=== PATIENT | female | born 1965 | race Caucasian/White ===

== ENCOUNTER 2020-05-03 15:35 | Inpatient (IN) | payer SELFPAY ==
[~2020-05-03 15:35] MED LIST: Calcium Chloride 1 GM/10 ML Abboject SYRINGE ONE; Dexamethasone 20 MG/5 ML VIAL ONE; Lidocaine 1% PF 5 ML VIAL ONE; PROPOFOL 200 MG/20 ML VIAL ONE; Rocuronium Bromide 10 MG/ML (10ML VIAL) ONE
[2020-05-03] MEDS ORDERED: Piperacillin/Tazobactam 3.375 GM VIAL ONE (15:49)
[2020-05-03] MEDS ORDERED: Norepinephrine 4 MG/4 ML VIAL ONE (15:50)
[2020-05-03 16:03] LABS: Hemoglobin 7.5 g/dL (12.0-16.0); Mean Corpuscular HGB CONC 30.3 g/dL (32.0-36.0); Mean Corpuscular Hemoglobin 20.9 pg (27.0-31.0); Mean Corpuscular Volume 68.8 fL (78.0-98.0); Mean Platelet Volume 9.6 fL (7.4-10.4); Platelet Count 368 thou/uL (130-400); RBC Distribution Width 19.6 % (11.5-14.5); Red Blood Cell (RBC) Count 3.61 mill/uL (4.20-5.40); White Blood Cell (WBC) Count 6.6 thou/uL (4.8-10.8)
[2020-05-03] MEDS ORDERED: Midazolam HCl 2 mg/2 ml Vial ONE (16:16)
[2020-05-03 16:18] LABS: Base Excess-Venous -4.8 mmol/L (-2.0 to 3.0); Bicarbonate (HCO3v) 20.1 mmol/L (22.0-28.0); CO2 Tension (PvCO2) 35.4 mmHg (40.0-50.0); Calcium, Ionized 1.22 mmol/L (1.15-1.33); Chloride 100 mmol/L (98-107); Hemoglobin - Calc 8.5 g/dL (12.0-16.0); Potassium 4.4 mmol/L (3.5-5.1); Sodium 131 mmol/L (138-145); T. Carbon Dioxide 21.2 mmol/L (22.0-28.0); vO2 Saturation-calc 46.9 % (60.0-85.0)
[2020-05-03 16:21] LABS: ALT (SGPT) 10 U/L (8-55); AST (SGOT) 21 U/L (5-34); Albumin 2.9 g/dL (3.5-5.0); Alkaline Phosphatase 50 U/L (40-110); Anion Gap 16 mmol/L (10-20); BUN (Urea Nitrogen) 14 mg/dL (9.8-20.1); Bilirubin, Total 0.2 mg/dL (0.2-1.2); Calc. Creatinine Clearance 0 mL/min (70-130); Calcium 9.6 mg/dL (7.8-10.44); Carbon Dioxide 16 mmol/L (22-29); Chloride 101 mmol/L (98-107); Globulin 3.1 g/dL (2.4-3.5); Glucose 88 mg/dL (70-105); Potassium 4.3 mmol/L (3.5-5.1); Sodium 129 mmol/L (136-145)
[2020-05-03 16:25] LABS: Anisocytosis SLIGHT = 6-15 cells (100X) (0-5/hpf); Band 60 % (5-11); Hypochromia SLIGHT = 6-15 cells (100X) (0-5/hpf); Lymphocytes 10 % (21-51); MDiff Complete? YES; Microcytosis MODERATE=15-30 cells (100X) (0-5/hpf); Monocytes 11 % (0-10); Neutrophil 18 % (42-75); Platelet Morphology Comment Appears Adequate; Polychromasia SLIGHT = 2-3 cells (100X) (0-2/hpf); Reactive Lymphocytes 1 % (0-10); Reflex for Review?? NO; Target Cells MODERATE= 6-15 cells (100X) (0-1/hpf)
[2020-05-03] MEDS ORDERED: Sodium Chloride 0.9% 30 ML ONE (16:41)
[2020-05-03 16:52] LABS: INR-International Normal Ratio 1.1; Prothrombin Time 14.8 sec (12.0-14.7)
[2020-05-03 16:53] LABS: PTT 30.2 sec (22.9-36.1)
[2020-05-03] MEDS ORDERED: Phenylephrine 10 MG/ML VIAL ONE (17:05)
[2020-05-03] MEDS ORDERED: HYDROmorphone 0.5 MG/0.5 ML SYRINGE ONE ×2 (17:05→19:18)
[2020-05-03] MEDS ORDERED: Fentanyl 100 MCG/2 ML VIAL ONE (17:05)
[2020-05-03] MEDS ORDERED: Insulin Regular 300 UNITS/3 ML VIAL SC PRN (17:11)
[2020-05-03] MEDS ORDERED: Dextrose 5% in Water 1,000 ML IV PRN (17:11)
[2020-05-03] MEDS ORDERED: Ondansetron ODT 4 MG TAB PO PRN (17:11)
[2020-05-03] MEDS ORDERED: Dextrose 50% Abboject 50 ML SYRINGE SLOW IVP PRN (17:11)
[2020-05-03] MEDS ORDERED: Calcium Chloride 1 GM/10 ML Abboject SYRINGE ONE (17:37)
[2020-05-03] MEDS ORDERED: Sodium Bicarbonate 2.5 MEQ/5 ML VIAL ONE (17:38)
[2020-05-03 17:41] LABS: SARS-CoV-2 NAA Rapid Test Not Detected (NotDetected)
--- NOTE | 2020-05-03 17:43 | HP ---
HISTORY OF PRESENT ILLNESS: Ms. Kaufman is a 55 year old woman with known history of peptic ulcerative disease, who was supposed to be on [id number] Prilosec which she has run out of for several days. The patient reports insidious onset of epigastric abdominal pain, which has now become generalized and worsened over the last 2 days. The pain intensified to 10/10 and she presented to emergency department. Recently, she has been having dark tarry stools, although she denies any eris hematochezia. She denies any unexplained weight loss. is at bedside and helped to corroborate some of her history. PAST MEDICAL HISTORY: Pertinent for peptic ulcerative disease, chronic pain syndrome. PAST SURGICAL HISTORY: Pertinent for previous upper endoscopies. She otherwise denies any other major body cavity surgeries. SOCIAL HISTORY: She is , lives at home with her who is a nonsmoker and nondrinker. The patient herself, however, drinks about a 12 pack of beer a day and smokes 3 packs of cigarettes per day and has done so for over 20 years. She denies any other illicit drug abuse. MEDICATIONS: Pre-hospitalization medication supposed to be on Prilosec [id number] and she has also been taking Aleve for headaches and has taken a lot of it lately due to abdominal pain. ALLERGIES: THE PATIENT DENIES ANY KNOWN DRUG ALLERGIES. FAMILY HISTORY: Noncontributory for this patient's age. REVIEW OF SYSTEMS: Ten-point review of systems essentially unremarkable except as stated in past medical history and chief complaint. PHYSICAL EXAMINATION: GENERAL: This reveals a 55-year-old normally developed woman, who is otherwise coherent and interactive and appears stated age. The patient is alert and oriented x3. She appears to be in acute distress secondary to generalized abdominal pain. VITAL SIGNS: Include blood pressure 103/64, pulse 108, respiratory rate is 22, temperature 97.9 degrees Fahrenheit, oxygen saturation is 97% on room air. HEENT: Pupils equal, round, reactive to light and accommodation. HEART: Reveals regular rate with sinus tachycardia. No murmurs or gallops auscultated. LUNGS: Reveals bibasilar rhonchi. Breathing regular and nonlabored. ABDOMEN: Soft, moderately distended with generalized tenderness to palpation. She has profound rebound tenderness to palpation. Liver and spleen otherwise nonpalpable below costal margin. EXTREMITIES: Reveal 2+ radial and pedal pulses bilaterally. No ankle edema is present. NEUROLOGIC: Reveals no focal deficits present. LABORATORY FINDINGS: Today include a CBC with 6600 white blood cells, hemoglobin and hematocrit 7.5 and 24.8 respectively. Platelet count is 368,000. Differential counts as follows, 18 segmented neutrophils, 60 bands, 10 lymphocytes and 11 monocytes. Venous blood gas: PH 7.36, pCO2 of 35, PO2 of 26.3. Venous oxygen saturation is 47%. Metabolic profile: Sodium 129, potassium 4.3, chloride is 101, bicarb is 16, BUN 14, creatinine is 1.0, glucose is 88, lactic acid 3.2. I have personally reviewed the CT scan of the abdomen and pelvis, which is remarkable for free intraperitoneal fluid, thickening of duodenum and scattered small bowel wall thickening. Large amount of fluid is mostly in the right upper quadrant. No significant pneumoperitoneum is present. IMPRESSION: 1. Acute perforated viscus, likely perforated duodenal ulcer. 2. Acute on chronic blood loss anemia. 3. Acute lactic acidosis. 4. Acute septic shock. 5. Acute peritonitis secondary to perforated duodenal ulcer. PLAN: Exploratory laparotomy with all indicated procedures. Continue with fluid resuscitation and broad-spectrum antibiotic therapy. We will start the patient on proton-pump inhibitor by continuous infusion perioperatively. Above findings and plan has been discussed with the patient and her at bedside. I have advised the patient of the risks and benefits of the proposed surgery to include, but not limited to, bleeding, infection, injury to bowel or surrounding structures. Additionally, due to history of chronic alcoholism and chronic tobacco abuse, she is at added risk for failure of the wound to heal and failure of the repair of the ulcer to hold. The patient indicates understanding of information provided. I have answered their questions. Total Critical Care time: 55 minutes Job ID: [id number] MTDD
[2020-05-03] MEDS ORDERED: Sodium Bicarb 50 MEQ/50 ML Abboject 8.4% SYRINGE ONE (18:49)
[2020-05-03] MEDS: Sodium Chloride 0.9% 1,000 ML IV SCH (19:50)
[2020-05-03] MEDS ORDERED: Propofol BOLUS 1,000 MG/100 ML VIAL IV PRN (20:15)
[2020-05-03] MEDS ORDERED: Propofol 1,000 MG/100 ML VIAL IV PRN (20:15)
[2020-05-03] MEDS ORDERED: Morphine 2 MG/ML VIAL SLOW IVP PRN (20:15)
[2020-05-03] MEDS ORDERED: Fentanyl BOLUS 250 ML IVPB PRN (20:15)
[2020-05-03] MEDS ORDERED: Lorazepam 2 MG/ML VIAL SLOW IVP PRN (20:15)
[2020-05-03] MEDS ORDERED: fentaNYL Citrate/PF 2,000 MCG in Sodium Chloride 0.9% 60 ML IV SCH (20:15)
[2020-05-03] MEDS ORDERED: DISCONTINUE PREVIOUS NARCOTIC PAIN MEDICATIONS AND BENZODIAZEPINES FS SCH (20:15)
[2020-05-03 20:16] VITALS: BMI 23.3
[2020-05-03 20:19] LABS: Actual Bicarbonate (HCO3a) 19.5 mEq/L (22-28); CO2 Tension 38.4 mmHg (35.0-45.0); Calcium, Ionized (arterial) 1.45 mmol/L (1.12-1.30); Carboxyhemoglobin (COHb) 1.5 gm% (0.0-3.0); Hemoglobin (Hb) 12.4 g/dL (12.0-16.0); O2 Tension (PaO2), arterial 64.7 mmHg (80.0-100.0); pH, Arterial 7.32 (7.35-7.45)
[2020-05-03 20:32] LABS: Lactic Acid 2.1 mmol/L (0.5-2.2)
--- NOTE | 2020-05-03 20:40 | OP ---
DATE OF PROCEDURE: 05/03/2020 PREOPERATIVE DIAGNOSES: 1. Acute perforated viscus, likely perforated duodenal ulcer. 2. Acute peritonitis secondary to #1. 3. Acute septic shock. POSTOPERATIVE DIAGNOSES: 1. Acute perforated viscus, likely perforated duodenal ulcer. 2. Acute peritonitis secondary to #1. 3. Acute septic shock. 4. Perforated duodenal ulcer. PROCEDURES PERFORMED: 1. Placement of triple-lumen left subclavian central venous catheter. 2. Exploratory laparotomy and abdominal washout. 3. Repair of perforated 3 mm duodenal ulcer with Delgado patch. 4. Placement of feeding nasojejunal tube. ANESTHESIA: General endotracheal. ESTIMATED BLOOD LOSS: 50 mL. FLUIDS GIVEN: 1500 mL of crystalloids and 2 units of packed red blood cells. COUNTS: Sponge and instrument counts were verified as correct x2. COMPLICATIONS: None apparent at the time of operation. INDICATIONS FOR OPERATION: This is a 55-year-old woman with 3-pack a day history of tobacco use as well as a 12-pack a day alcohol history. The patient had a known history of duodenal ulcer, for which she is supposed to be on proton-pump inhibitor. She has not been compliant with medications of late and also taking Aleve for pain. The patient presented to the hospital with worsening abdominal pain. Clinical and radiographic examination were consistent with acute perforated viscus with large amount of free intraperitoneal fluid. Perforated duodenal ulcer was suspected, for which the patient was brought to the operating room for exploration. Findings are consistent with 3 mm perforation of the anterior aspect of the second portion of the duodenum. of succus entericus was evacuated from the peritoneal cavity. DESCRIPTION OF OPERATION: Informed consent was obtained from the patient, who was brought to the operating room and placed in supine position. Following general anesthesia, left chest wall was sterilely prepped and draped in usual fashion. Left subclavian vein was cannulated with an 18-gauge introducer needle returning dark venous blood. Guidewire was passed through the needle and advanced into the left subclavian vein without resistance. Needle was withdrawn over the guidewire. A stab incision was made adjacent to the guidewire using 11 scalpel. Dilator was passed over the guidewire and dilating the subcutaneous tissues. Dilator was removed. Triple-lumen central venous catheter was then advanced over the guidewire and placed in the left subclavian vein without resistance, stopping at the 18 cm josh. Guidewire was removed. Dark venous blood was aspirated from all three ports, which were individually flushed with saline. Catheter was secured to anterior chest wall using 3-0 silk suture at two points. Sterile dressings were then applied. At this juncture, a Jacobsen catheter was inserted and placed to bedside drain. Nasogastric tube was inserted and placed to wall suction. The abdomen was then sterilely prepped and draped in usual fashion. A midline incision was made using 10 scalpel. The incision was carried through subcutaneous tissues, maintaining hemostasis using cautery. Fascia was incised in midline, exposing the peritoneum beneath, which was grasped x2 with hemostats. The peritoneal cavity was sharply entered using Metzenbaum scissors. Large amount of succus entericus was evacuated from the peritoneal cavity. Bookwalter retractor was put in place to gain exposure. I lifted the inferior edge of the liver and large amount of succus egressed. There is a visible 3 mm ulcer perforation in the anterior aspect of the second portion of the duodenum. This was closed using interrupted sutures of 3-0 silk. The abdominal cavity was then irrigated in all 4 quadrants until it was clear. Small bowel was run from ligament of Treitz down to terminal ileum, no pathology was identified. The large intestine was inspected from the cecum through the ascending, transverse, descending, sigmoid colon, and rectum, no other pathology identified. Previous nasogastric tube was palpated within the gastric lumen. At this juncture, Anesthesia introduced a nasojejunal tube, the tip of which was palpated by myself within the gastric lumen. I was able to manipulate the tip of this catheter into proximal small bowel without resistance. The abdomen was again re-irrigated until it was clear. I freshened a lip of omentum, which was placed over the ulcer repair and secured in a Delgado patch fashion using 3-0 silk suture. A #19 Rik drain was then placed over the repair and allowed to course through the subhepatic space and exiting the abdominal cavity through a separate stab incision. The drain was secured to anterior abdominal wall using 2-0 silk suture. Finding no other pathology, exploration was terminated. I placed one sheet of Seprafilm in the deep pelvis and then returned small bowel to normal anatomic location. A second piece of Seprafilm was placed over the remainder of the small bowel, and omentum was drawn over this. Fascia was approximated in the midline using a running stitch of #1 single-stranded PDS. Subcutaneous tissue was pulse lavaged with 3 L of sterile saline. Deep subcutaneous tissues were approximated using interrupted sutures of 3-0 Vicryl. Skin incision was closed using amina. Sterile dressings were then applied. The patient tolerated the operation without any apparent complication and was returned to the intensive care unit in stable condition. Job ID: [id number]
[2020-05-03 20:41] LABS: Puncture Site Arterial Line
--- NOTE | 2020-05-03 21:15 | RAD ---
EXAM: CHEST ONE VIEW HISTORY: Endotracheal tube placement. COMPARISON: 01/07/2014 FINDINGS: Endotracheal tube is noted in place with tip overlying the T3 vertebral body. Nasogastric tube and Do bbhoff feeding tubes are also noted in place, but the tips are not imaged on this exam. Left subclavian central venous catheter in place with tip overlying the expected location of the distal SV C. There are linear densities seen at the medial aspect of each lung base which may represent atelectas is. . There is slight blunting of the right lateral costophrenic angle. Tiny right pleural effusion cannot be excluded. No pneumothorax is seen. There is suggestion of a calcified granuloma at the righ t lung base. Osseous structures appear intact. IMPRESSION: 1. Lines and tubes in place as described above. No pneumothorax is seen. 2. Bibasilar atelectasis with suggestion of minimal right pleural effusion.
[2020-05-03] MEDS: Pantoprazole 80 MG in Sodium Chloride 0.9% 100 ML IVPB SCH (21:18)
--- NOTE | 2020-05-03 21:19 | RAD ---
EXAM: XR Abdomen 1 View/KUB PROVIDED CLINICAL HISTORY: Feeding tube placement. COMPARISON: None FINDINGS: A Dobbhoff feeding tube is noted in place with tip overlying the left upper quadrant and likely near the level of the ligament of Treitz. Nasogastric tube is noted in place with tip overlying the expected location proximal body of the stomach. Drainage catheter overlies the left upper quadrant. M idline skin clips are seen. There is blunting of the right lateral costophrenic angle suggesting tiny right pleural effusion with mild atelectasis. Residual contrast is seen in the right renal colle cting system related to prior contrasted exam. Bowel gas pattern is nonspecific. IMPRESSION: 1. Nasogastric tube, Dobbhoff feeding tube, and drainage catheter overlie the abdomen as described ab ove. 2. Minimal right pleural effusion and atelectasis.
[2020-05-03] MEDS ORDERED: Albuterol Sulfate HFA (OR ONLY) ONE (21:55)
[2020-05-04] MEDS: Oxazepam 10 MG CAP PO SCH ×4 (01:03→17:49)
[2020-05-04] MEDS: Piperacillin/Tazobactam 3.375 GM in Sodium Chloride 0.9% 100 ML IVPB SCH ×4 (01:03→17:50)
[2020-05-04] MEDS ORDERED: Morphine 4 MG/ML VIAL SLOW IVP PRN (04:05)
[2020-05-04] MEDS ORDERED: traMADol HCl 50 MG TAB PO PRN (04:05)
[2020-05-04] MEDS ORDERED: diphenhydrAMINE 50 MG/ML VIAL IVP PRN (04:14)
[2020-05-04] MEDS ORDERED: diphenhydrAMINE 50 MG/ML VIAL IM PRN (04:14)
[2020-05-04] MEDS ORDERED: Naloxone HCl 0.4 mg/ml Vial IV PRN (04:14)
[2020-05-04] MEDS ORDERED: diphenhydrAMINE 25 MG CAP PO PRN (04:14)
[2020-05-04] MEDS ORDERED: Promethazine HCl 25 MG/ML VIAL IM PRN (04:14)
[2020-05-04] MEDS ORDERED: HYDROmorphone 10 mg/100 ml CADD IVPB PRN (04:14)
[2020-05-04] MEDS ORDERED: Communication Order-Pharmacy FS SCH (04:15)
[2020-05-04 04:28] LABS: INR-International Normal Ratio 1.3; PTT 37.1 sec (22.9-36.1); Prothrombin Time 16.7 sec (12.0-14.7)
[2020-05-04 04:43] LABS: Lactic Acid 2.1 mmol/L (0.5-2.2)
[2020-05-04 04:48] LABS: Anion Gap 13 mmol/L (10-20); BUN (Urea Nitrogen) 12 mg/dL (9.8-20.1); Calc. Creatinine Clearance 79 mL/min (70-130); Carbon Dioxide 19 mmol/L (22-29); Chloride 106 mmol/L (98-107); Glucose 115 mg/dL (70-105); Magnesium 1.3 mg/dL (1.6-2.6); Phosphorus 4.2 mg/dL (2.3-4.7); Potassium 3.8 mmol/L (3.5-5.1); Sodium 134 mmol/L (136-145)
[2020-05-04 05:35] LABS: Anisocytosis SLIGHT = 6-15 cells (100X) (0-5/hpf); Band 64 % (5-11); Hemoglobin 10.6 g/dL (12.0-16.0); Hypochromia SLIGHT = 6-15 cells (100X) (0-5/hpf); Lymphocytes 5 % (21-51); MDiff Complete? YES; Mean Corpuscular HGB CONC 31.9 g/dL (32.0-36.0); Mean Corpuscular Volume 75.3 fL (78.0-98.0); Mean Platelet Volume 10.4 fL (7.4-10.4); Metamyelocyte 3 % (0-0); Microcytosis SLIGHT = 6-15 cells (100X) (0-5/hpf); Monocytes 5 % (0-10); Neutrophil 23 % (42-75); Platelet Count 266 thou/uL (130-400); RBC Distribution Width 21.5 % (11.5-14.5); Red Blood Cell (RBC) Count 4.41 mill/uL (4.20-5.40); White Blood Cell (WBC) Count 11.6 thou/uL (4.8-10.8)
[2020-05-04] MEDS ORDERED: traMADol HCl 50 MG TAB PO SCH (06:00)
[2020-05-04] MEDS ORDERED: Acetaminophen 325 MG TAB PO SCH (06:00)
--- NOTE | 2020-05-04 06:02 | PRG ---
DATE OF SERVICE: 05/03/2020 SUBJECTIVE: The patient was seen during evening rounds in the critical care unit. The patient had just returned from the operating room, status post exploratory laparotomy, abdominal washout, and repair of perforated duodenal ulcer with Delgado patch. The patient has a Dobhoff in place. The patient is currently sedated on full ventilatory support. The patient was given 1500 mL of crystalloids and 2 units of packed red blood cells in the OR. The patient's urinary output is adequate for age and weight. Vital signs are stable and the patient is afebrile. The patient is sedated with propofol and fentanyl. The patient has trickle tube feeds at 10 mL an hour. PLAN: Continue supportive care and full ventilatory support. Continue to monitor vital signs and urinary output. Job ID: [id number]
[2020-05-04] MEDS: Pantoprazole 80 MG in Sodium Chloride 0.9% 100 ML IVPB SCH (06:30)
[2020-05-04] MEDS ORDERED: MAGNESIUM SULFATE IVPB SCH (08:00)
[2020-05-04] MEDS ORDERED: SODIUM CHLORIDE 0.9% IVPB SCH (08:00)
[2020-05-04] MEDS ORDERED: POTASSIUM CHLORIDE IVPB SCH (08:00)
[2020-05-04] MEDS: Folic Acid 1 MG TAB PO SCH (08:42)
[2020-05-04] MEDS: Thiamine 100 MG TAB PO SCH (08:42)
[2020-05-04] MEDS: Ascorbic Acid 500 mg Chewable Tablet PO SCH (08:42)
[2020-05-04] MEDS: Sodium Chloride 0.9% 1,000 ML IV SCH ×2 (08:42→17:05)
[2020-05-04] MEDS: Ferrous Sulfate 325 MG TAB PO SCH ×2 (08:42→17:49)
[2020-05-04] MEDS: Pantoprazole 80 MG, Admixture Fee 1 EACH in Sodium Chloride 0.9% 100 ML IVPB SCH (16:59)
--- NOTE | 2020-05-04 17:19 | PRG ---
DATE OF SERVICE: 05/04/2020 SUBJECTIVE: The patient was seen this morning during rounds. She was extubated earlier today. She is sitting up in bed with no signs of acute distress. She reports her pain is well controlled with the Dilaudid DINING SERVICES MANAGER when she pushes it. Otherwise, she is n.p.o., and she is hemodynamically stable. OBJECTIVE: VITAL SIGNS: Temperature 98.5, pulse 90, respirations 19, oxygen saturation 92% on room air, and blood pressure 119/66. GENERAL: Middle-aged female, sitting up in bed with no signs of acute distress. PULMONARY: Equal chest rise and fall. Clear breath sounds bilaterally. No signs of acute respiratory distress. CARDIAC: Regular rate and rhythm. GI: Abdomen is soft, appropriately tender to palpation. Midline abdominal wound dressing is clean, dry, and intact. ALEXANDRA drain with serosanguineous output. EXTREMITIES: 2+ pulses in all extremities. Gross motor and sensation are intact. No significant swelling noted. NEURO: GCS is 15. LABORATORY FINDINGS: White count 11.6, hemoglobin 10.6, hematocrit 33.2, and platelets 266. Sodium 134, potassium 3.8, chloride 106, bicarb 19, BUN 12, creatinine 0.75, glucose 115, phosphorus 4.2, and magnesium 1.5. DIAGNOSTIC FINDINGS: There are no new diagnostic findings to report. ASSESSMENT: 1. Postop day #1, status post exploratory laparotomy, abdominal washout, repair of 3 mm duodenal ulcer with Delgado patch for ruptured duodenal ulcer. 2. Sepsis, improved. 3. Acute hypomagnesemia. 4. Acute postoperative pain. PLAN: Continue n.p.o. Continue NG tube to suction and continue Dobbhoff at 10 an hour. Continue normal saline at 100 an hour. Continue Zosyn. Continued Dilaudid DINING SERVICES MANAGER and PPI. Replace magnesium and potassium today. Still pending H pylori results. Up out of bed today and into the chair. Aggressive pulmonary hygiene. Will likely move the patient to floor this afternoon if remains stable and is not requiring increased oxygen today. Job ID: [id number]
[2020-05-04] MEDS ORDERED: Nicotine 7 MG PATCH TD SCH (18:00)
[2020-05-05] MEDS ORDERED: Piperacillin/Tazobactam 3.375 GM VIAL ONE (00:01)
[2020-05-05] MEDS: Oxazepam 10 MG CAP PO SCH ×4 (00:27→18:37)
[2020-05-05] MEDS: Sodium Chloride 0.9% 1,000 ML IV SCH (00:27)
[2020-05-05] MEDS: Piperacillin/Tazobactam 3.375 GM in Sodium Chloride 0.9% 100 ML IVPB SCH ×3 (00:28→11:06)
--- NOTE | 2020-05-05 01:50 | PRG ---
DATE OF SERVICE: 05/04/2020 SUBJECTIVE: The patient was seen during evening rounds in the critical care unit, awake, alert, in no distress. The patient was extubated earlier today. The patient does have some mild soreness in her abdomen. Her dressing is clean, dry, and intact. The patient is on a Dilaudid DRAGLINE ENGINEER for pain. Vital signs are stable and the patient is afebrile. Urinary output is adequate for patient's age and weight. PLAN: Continue supportive care and pain regimen. The patient is pending IMCU bed. N.p.o. with trickle tube feeds. Continue antibiotics. Job ID: [id number]
[2020-05-05 04:38] LABS: Anion Gap 12 mmol/L (10-20); BUN (Urea Nitrogen) 9 mg/dL (9.8-20.1); Calc. Creatinine Clearance 87 mL/min (70-130); Calcium 8.3 mg/dL (7.8-10.44); Carbon Dioxide 20 mmol/L (22-29); Chloride 111 mmol/L (98-107); Glucose 111 mg/dL (70-105); Phosphorus 2.3 mg/dL (2.3-4.7); Potassium 3.5 mmol/L (3.5-5.1); Sodium 139 mmol/L (136-145)
[2020-05-05 05:14] LABS: Band 46 % (5-11); Hemoglobin 9.6 g/dL (12.0-16.0); Lymphocytes 15 % (21-51); MDiff Complete? YES; Mean Corpuscular HGB CONC 31.6 g/dL (32.0-36.0); Mean Platelet Volume 9.9 fL (7.4-10.4); Monocytes 3 % (0-10); Neutrophil 35 % (42-75); Platelet Count 263 thou/uL (130-400); RBC Distribution Width 21.8 % (11.5-14.5); Reactive Lymphocytes 1 % (0-10); Red Blood Cell (RBC) Count 3.99 mill/uL (4.20-5.40); White Blood Cell (WBC) Count 17.4 thou/uL (4.8-10.8)
[2020-05-05] MEDS: Lactated Ringer's 1,000 ML IV SCH ×2 (08:18→17:33)
[2020-05-05] MEDS ORDERED: Amlodipine 10 MG TAB PO SCH (09:00)
[2020-05-05] MEDS ORDERED: Albuterol Sulfate 1.25 MG/3 ML NEB NEB SCH (10:15)
[2020-05-05] MEDS ORDERED: Ipratropium Bromide 2.5 ml Neb NEB SCH (10:15)
--- NOTE | 2020-05-05 10:36 | RAD ---
CHEST 1 VIEW: Date: 05/05/2020 HISTORY: Respiratory distress. COMPARISON: Radiograph 2 days prior. FINDINGS: The left subclavian central venous catheter tip projects over the inferior SVC. Multifocal air space opacities are progressed with some confluence in the right upper lobe. Enlarging pleural effusions. Enteric suction and feeding tube tips below the diaphragm, although out of field of view. IMPRESSION: Enlarging effusions and worsening lung aeration. POS: [facility]
[2020-05-05] MEDS ORDERED: Clarithromycin 500 MG TAB PO SCH (10:45)
[2020-05-05] MEDS ORDERED: Clarithromycin 250 MG TAB PO SCH (11:00)
[2020-05-05] MEDS: Thiamine 100 MG TAB PO SCH (11:05)
[2020-05-05] MEDS: Ferrous Sulfate 325 MG TAB PO SCH ×2 (11:05→18:37)
[2020-05-05] MEDS: Folic Acid 1 MG TAB PO SCH (11:06)
[2020-05-05] MEDS: Amlodipine 10 MG TAB PO SCH (11:06)
[2020-05-05] MEDS: Ascorbic Acid 500 mg Chewable Tablet PO SCH (11:06)
[2020-05-05] MEDS ORDERED: Morphine 4 MG/ML VIAL SLOW IVP PRN (13:32)
[2020-05-05] MEDS ORDERED: Iopamidol-370 76% 500 ML 1 ML ONE (13:34)
[2020-05-05] MEDS: Morphine 2 MG/ML VIAL SLOW IVP PRN ×4 (13:36→22:03)
--- NOTE | 2020-05-05 14:07 | PRG ---
DATE OF SERVICE: 05/05/2020 SUBJECTIVE: Ms. Kaufman is a 55-year-old woman who is postoperative day #2, status post exploratory laparotomy and repair of perforated duodenal ulcer with Delgado patch. The patient is awake and alert this morning. She reports 7/10 abdominal pain. She is poorly using the PNEUMATIC TOOL REPAIRER Dilaudid. She denies any nausea or vomiting. She denies passing any flatus. Urinary output is adequate for the patient's age and weight. OBJECTIVE: VITAL SIGNS: This morning include blood pressure 150/70, pulse is 126, respiratory rate is 27, maximum temperature in the last 24 hours is 98.8 degrees Fahrenheit, oxygen saturation currently is 93% on 6 L by high-flow nasal cannula. GENERAL: She has poor cough effort. HEENT: Pupils are equal, round, reactive to light and accommodation. NECK: She has no jugular venous distention noted. HEART: Reveals regular rate with sinus tachycardia. No murmurs or gallops auscultated. LUNGS: Reveals diminished breath sounds in both bases. She has scattered expiratory wheezes. Breathing is otherwise nonlabored. ABDOMEN: Soft with incisional tenderness to palpation. Vincent-Mccormick drain returns 50 mL over the last 24 hours. Incisional wound VAC returns 450 mL over the previous 24 hours. Both are serosanguineous in character. NEUROLOGIC: Reveals no focal deficits present. PERTINENT LABORATORY FINDINGS: Include a CBC with 17,400 white blood cells, hemoglobin and hematocrit 9.6 and 30.3 respectively. Platelet count is 263,000. Metabolic profile; sodium 139, potassium 3.5, chloride is 111, bicarb is 20, BUN is 9, creatinine 0.68, glucose is 114, magnesium 2.0, and phosphorus 2.3. IMPRESSION: 1. Postoperative day #2, status post exploratory laparotomy and repair of perforated duodenal ulcer. 2. Acute hypokalemia. 3. Acute hypophosphatemia. 4. Acute hypoxemic pulmonary insufficiency. PLAN: 1. Correct abnormal electrolytes. 2. Increase pulmonary toilet and bronchodilator therapy. 3. Increase activity per Physical and Occupational Therapy. 4. We will continue enteral nutritional supplementation, maintaining n.p.o. otherwise. The patient indicates understanding of the information provided. I have answered her questions. Job ID: [id number]
[2020-05-05] MEDS: Enoxaparin Sodium 40 MG/0.4 ML SYRINGE SC SCH (14:35)
[2020-05-05] MEDS ORDERED: Haloperidol Lactate 5 MG/ML VIAL SLOW IVP PRN (19:06)
[2020-05-05] MEDS: Budesonide 0.5 MG/2 ML NEB NEB SCH (20:40)
[2020-05-05] MEDS ORDERED: Enoxaparin Sodium 40 MG/0.4 ML SYRINGE SC SCH (21:00)
[2020-05-05] MEDS: Atorvastatin Calcium 40 MG TAB PO SCH (22:03)
[2020-05-05] MEDS: Pantoprazole 80 MG, Admixture Fee 1 EACH in Sodium Chloride 0.9% 100 ML IVPB SCH (22:03)
[2020-05-05] MEDS: AMOXicillin 250 MG CAP PO SCH (22:04)
[2020-05-05] MEDS: Clarithromycin 500 MG TAB PO SCH (22:04)
--- NOTE | 2020-05-05 23:23 | CT ---
EXAM: CTA of the chest HISTORY: Respiratory distress and hypoxia COMPARISON: CT abdomen/pelvis 05/03/2020 TECHNIQUE: Multiple contiguous axial images were obtained a CTA of the chest with contrast per pulmon zurdo embolism protocol. 3-D oblique MIP reformats and direct coronal reformats were performed. FINDINGS: An NG tube and feeding tube are visualized. HEART: Normal in size without focal cardiac abnormality. PULMONARY ARTERIES: Normal in caliber without filling defects to suggest pulmonary emboli. MEDIASTINUM: No hilar or mediastinal lymphadenopathy. LUNGS: Multifocal scattered opacities in the lungs are seen consistent with Covid pneumonia. Confluen t consolidation is seen in the left lower lobe. PLEURAL SPACE: There are small bilateral pleural effusions with adjacent atelectasis, right greater t morrow left. CHEST WALL SOFT TISSUES: Unremarkable VISUALIZED OSSEOUS STRUCTURES: No acute abnormality. VISUALIZED SUBDIAPHRAGMATIC STRUCTURES: No acute abnormality. There is a lobulated appearance of the left kidney. There is a stable fat-containing lesion in the right adrenal gland. IMPRESSION: 1. No evidence of pulmonary thromboembolism 2. Covid pneumonia 3. Bilateral pleural effusions with adjacent atelectasis.
[2020-05-06] MEDS: Oxazepam 10 MG CAP PO SCH ×4 (01:06→16:58)
[2020-05-06 03:48] LABS: Anion Gap 12 mmol/L (10-20); BUN (Urea Nitrogen) 4 mg/dL (9.8-20.1); Calc. Creatinine Clearance 104 mL/min (70-130); Calcium 7.9 mg/dL (7.8-10.44); Carbon Dioxide 21 mmol/L (22-29); Chloride 107 mmol/L (98-107); Glucose 86 mg/dL (70-105); Magnesium 1.6 mg/dL (1.6-2.6); Phosphorus 2.7 mg/dL (2.3-4.7); Potassium 3.3 mmol/L (3.5-5.1); Sodium 137 mmol/L (136-145)
[2020-05-06 04:25] LABS: Anisocytosis SLIGHT = 6-15 cells (100X) (0-5/hpf); Band 8 % (5-11); Eosinophils 1 % (0-10); Hemoglobin 9.5 g/dL (12.0-16.0); Lymphocytes 7 % (21-51); MDiff Complete? YES; Mean Corpuscular HGB CONC 31.7 g/dL (32.0-36.0); Mean Corpuscular Hemoglobin 24.1 pg (27.0-31.0); Mean Corpuscular Volume 75.8 fL (78.0-98.0); Microcytosis SLIGHT = 6-15 cells (100X) (0-5/hpf); Monocytes 5 % (0-10); Neutrophil 79 % (42-75); Platelet Count 245 thou/uL (130-400); RBC Distribution Width 22.1 % (11.5-14.5); Red Blood Cell (RBC) Count 3.94 mill/uL (4.20-5.40); Target Cells SLIGHT = 2-5 cells (100X) (0-1/hpf); White Blood Cell (WBC) Count 19.8 thou/uL (4.8-10.8)
[2020-05-06] MEDS ORDERED: Magnesium Sulfate 3 GM in Sodium Chloride 0.9% 100 ML IVPB SCH (04:30)
[2020-05-06] MEDS ORDERED: Potassium Chloride 40 MEQ in Premix Bag 1 BAG IVPB SCH (04:30)
[2020-05-06] MEDS: Budesonide 0.5 MG/2 ML NEB NEB SCH ×2 (06:50→19:38)
[2020-05-06 06:54] LABS: Actual Bicarbonate (HCO3a) 19.8 mEq/L (22-28); Base Excess (BEa) -3.2 mEq/L (-2.0 to +3.0); CO2 Tension 29.1 mmHg (35.0-45.0); Calcium, Ionized (arterial) 1.18 mmol/L (1.12-1.30); Carboxyhemoglobin (COHb) 0.3 gm% (0.0-3.0); Hemoglobin (Hb) 10.9 g/dL (12.0-16.0); Potassium - ABG Lab 3.99 mmol/L (3.70-5.30); pH, Arterial 7.45 (7.35-7.45)
[2020-05-06 06:59] LABS: ALV-art Gradient 374.775 mmHg (0-20); O2 Tension (PaO2), arterial 52.3 mmHg (80.0-100.0); Puncture Site LRA
[2020-05-06] MEDS: Morphine 2 MG/ML VIAL SLOW IVP PRN ×2 (08:23→14:05)
[2020-05-06] MEDS ORDERED: Furosemide 20 MG/2 ML VIAL SLOW IVP SCH (08:30)
[2020-05-06] MEDS ORDERED: SODIUM CHLORIDE 0.9% IVPB SCH (08:30)
[2020-05-06] MEDS ORDERED: SODIUM PHOSPHATE IVPB SCH (08:30)
[2020-05-06] MEDS: Ascorbic Acid 500 mg Chewable Tablet PO SCH (08:51)
[2020-05-06] MEDS: Folic Acid 1 MG TAB PO SCH (08:51)
[2020-05-06] MEDS: Ferrous Sulfate 325 MG TAB PO SCH ×2 (08:51→16:56)
[2020-05-06] MEDS: Amlodipine 10 MG TAB PO SCH (08:51)
[2020-05-06] MEDS: Thiamine 100 MG TAB PO SCH (08:51)
[2020-05-06] MEDS: Clarithromycin 500 MG TAB PO SCH ×2 (08:52→21:22)
[2020-05-06] MEDS: AMOXicillin 250 MG CAP PO SCH ×2 (08:52→21:21)
[2020-05-06] MEDS: Enoxaparin Sodium 40 MG/0.4 ML SYRINGE SC SCH (08:52)
[2020-05-06] MEDS: Micafungin 100 MG in Sodium Chloride 0.9% 100 ML IVPB SCH (09:49)
--- NOTE | 2020-05-06 16:25 | PRG ---
DATE OF SERVICE: 05/06/2020 SUBJECTIVE: Ms. Kaufman is a 55-year-old woman. She is postoperative day #3, status post exploratory laparotomy and repair of perforated duodenal ulcer with Delgado patch. The patient developed acute congestive heart failure exacerbation. She is on noninvasive mechanical ventilator support. This morning, she is more awake, alert, and less confused. Urinary output is adequate for this patient's age and weight. She is tolerating tube feeds at 10 mL/hr. OBJECTIVE: VITAL SIGNS: This morning include blood pressure 146/75, pulse 112, respiratory rate is 32, maximum temperature in last 24 hours is 97.8 degrees Fahrenheit, oxygen saturation is 97% on BiPAP at 80% FiO2. HEENT: Pupils are equal, round, and reactive to light bilaterally. She does have bilateral scleral edema present. NECK: She has no jugular venous distention noted. HEART: Reveals regular rate with sinus tachycardia. No murmurs or gallops auscultated. LUNGS: Reveals bibasilar rhonchi. Breathing regular and nonlabored. ABDOMEN: Soft with incisional tenderness to palpation. She has no peritoneal signs on examination. Vincent-Mccormick drain has returned 40 mL of serous fluid over the previous 24 hours. NEUROLOGIC: Reveals no focal deficits present. LABORATORY FINDINGS: Today includes a CBC with 19,800 white blood cells, hemoglobin and hematocrit at 9.5 and 29.9 respectively. Platelet count is 245,000. Metabolic profile; sodium is 137, potassium 3.3, chloride is 107, bicarb is 21, BUN is 4, creatinine 0.57, glucose is 86, magnesium is 1.6, and phosphorus is 2.7. IMPRESSION: 1. Postoperative day #3, status post exploratory laparotomy and repair of perforated duodenal ulcer with Delgado patch. 2. Acute congestive heart failure exacerbation. 3. Acute hypokalemia. 4. Acute hypomagnesemia. 5. Acute hypophosphatemia. 6. Acute Respiratory Failure PLAN: 1. Continue with forced diuresis and pulmonary toilet for this patient's history of tobacco-induced COPD. 2. Correct abnormal electrolytes. 3. Increase activity per Physical and Occupational Therapy. 4. Increase tube feeds towards goal. 5. Continue with non-invasive mechanical ventilatory support until her CHF resolves Above findings and plan has been discussed with the patient's who indicates understanding of the information provided. I have answered his questions. Total critical care time : 40 minutes Job ID: [id number] MTDMatias
[2020-05-06] MEDS: Acetaminophen 325 MG TAB PO SCH ×2 (16:54→21:21)
[2020-05-06] MEDS: Furosemide 20 MG/2 ML VIAL SLOW IVP SCH (16:56)
[2020-05-06] MEDS: traMADol HCl 50 MG TAB PO SCH (16:58)
[2020-05-06 18:35] LABS: SARS-CoV-2 MS2 Positive; SARS-CoV-2 N Gene Negative; SARS-CoV-2 S Gene Negative; SARS-CoV-2 by NAA Not Detected (NotDetected); SARS-CoV-2 orf1ab Negative
[2020-05-06 18:36] LABS: H. pylori IgA ABS Less than 9.0 units (0.0-8.9); H. pylori IgG ABS 0.59 (0.00-0.79); H. pylori IgM ABS Less than 9.0 units (0.0-8.9)
[2020-05-06] MEDS: Atorvastatin Calcium 40 MG TAB PO SCH (21:21)
[2020-05-06] MEDS: Pantoprazole 40 MG VIAL IVP SCH (21:21)
[2020-05-07] MEDS: Furosemide 20 MG/2 ML VIAL SLOW IVP SCH ×2 (00:28→08:40)
[2020-05-07] MEDS: Oxazepam 10 MG CAP PO SCH ×4 (00:28→17:56)
[2020-05-07] MEDS: traMADol HCl 50 MG TAB PO SCH ×4 (00:29→17:55)
[2020-05-07] MEDS: Acetaminophen 325 MG TAB PO SCH ×4 (04:48→21:01)
[2020-05-07 05:04] LABS: Band 18 % (5-11); Hemoglobin 10.4 g/dL (12.0-16.0); Lymphocytes 14 % (21-51); MDiff Complete? YES; Mean Corpuscular HGB CONC 31.6 g/dL (32.0-36.0); Mean Corpuscular Hemoglobin 23.8 pg (27.0-31.0); Mean Corpuscular Volume 75.2 fL (78.0-98.0); Mean Platelet Volume 10.6 fL (7.4-10.4); Monocytes 3 % (0-10); Neutrophil 64 % (42-75); Platelet Count 265 thou/uL (130-400); RBC Distribution Width 22.8 % (11.5-14.5); Reactive Lymphocytes 1 % (0-10); Red Blood Cell (RBC) Count 4.35 mill/uL (4.20-5.40); White Blood Cell (WBC) Count 18.2 thou/uL (4.8-10.8)
[2020-05-07 05:15] LABS: Anion Gap 13 mmol/L (10-20); BUN (Urea Nitrogen) 5 mg/dL (9.8-20.1); Calc. Creatinine Clearance 93 mL/min (70-130); Calcium 8.3 mg/dL (7.8-10.44); Carbon Dioxide 27 mmol/L (22-29); Chloride 102 mmol/L (98-107); Glucose 108 mg/dL (70-105); Magnesium 1.7 mg/dL (1.6-2.6); Phosphorus 3.7 mg/dL (2.3-4.7); Sodium 139 mmol/L (136-145)
[2020-05-07] MEDS ORDERED: Potassium Phosphate 30 MMOL in Sodium Chloride 0.9% 250 ML 250 ML IVPB SCH (06:00)
[2020-05-07] MEDS ORDERED: Magnesium Sulfate 3 GM in Sodium Chloride 0.9% 250 ML 250 ML IVPB SCH (06:00)
[2020-05-07] MEDS: Budesonide 0.5 MG/2 ML NEB NEB SCH ×2 (06:38→18:47)
[2020-05-07] MEDS: Pantoprazole 40 MG VIAL IVP SCH ×2 (08:38→20:57)
[2020-05-07] MEDS: Enoxaparin Sodium 40 MG/0.4 ML SYRINGE SC SCH (08:40)
[2020-05-07] MEDS: Amlodipine 10 MG TAB PO SCH (08:40)
[2020-05-07] MEDS: Folic Acid 1 MG TAB PO SCH (08:40)
[2020-05-07] MEDS: Thiamine 100 MG TAB PO SCH (08:41)
[2020-05-07] MEDS: Ascorbic Acid 500 mg Chewable Tablet PO SCH (08:41)
[2020-05-07] MEDS: AMOXicillin 250 MG CAP PO SCH ×2 (08:41→21:02)
[2020-05-07] MEDS: Ferrous Sulfate 325 MG TAB PO SCH ×2 (08:41→17:55)
[2020-05-07] MEDS: Clarithromycin 500 MG TAB PO SCH ×2 (09:07→21:03)
[2020-05-07] MEDS: Micafungin 100 MG in Sodium Chloride 0.9% 100 ML IVPB SCH (09:40)
--- NOTE | 2020-05-07 11:42 | PRG ---
DATE OF SERVICE: 05/07/2020 SUBJECTIVE: Ms. Kaufman is a 55-year-old woman, who is postoperative day #4, status post exploratory laparotomy, repair of perforated duodenal ulcer with Delgado patch. She is awake and alert this morning. She was on BiPAP overnight. This morning, she is more interactive and less confused. She moves all extremities and follows commands. Urinary output remains adequate for the patient's age and weight. OBJECTIVE: VITAL SIGNS: This morning include blood pressure 115/72, pulse 103, respiratory rate is 23, maximum temperature in the last 24 hours is 98.9 degrees Fahrenheit, oxygen saturation 96% on 5 L high-flow nasal. HEENT: Pupils are equal, round, reactive to light and accommodation. She has no jugular venous distention noted. HEART: Reveals regular rate with mild sinus tachycardia. No murmurs or gallops auscultated. LUNGS: Clear to auscultation bilaterally. Her breathing is regular and nonlabored. ABDOMEN: Soft with incisional tenderness to palpation. She has no peritoneal signs on examination. Vincent-Mccormick drain had returned 40 mL of serous fluid over the previous 24 hours. NEUROLOGIC: Reveals no focal deficits present. LABORATORY FINDINGS: Include a CBC with 18,200 white blood cells, hemoglobin and hematocrit stable at 10.4 and 32.7 respectively. Platelet count is 265,000. Metabolic profile; sodium 139, potassium 3.0, chloride is 102, bicarb is 27, BUN is 5, creatinine is 0.64, glucose is 108, magnesium 1.5, and phosphorus is 3.7. IMPRESSIONS: 1. Postoperative day #4, status post exploratory laparotomy, repair of perforated duodenal ulcer with Delgado patch. 2. Acute hypokalemia. 3. Acute hypomagnesemia. 4. Acute hypophosphatemia. 5. Acute blood loss anemia, stable. 6. Acute pulmonary insufficiency. History of 3-pack per day tobacco abuse. PLAN: 1. Correct abnormal electrolytes. 2. Continue with gentle diuresis. 3. Increase activity per Physical and Occupational Therapy. 4. The patient is hemodynamically stable for transfer to general surgical floor. Job ID: [id number]
[2020-05-07] MEDS: traMADol HCl 50 MG TAB PO PRN (14:55)
[2020-05-07] MEDS: Atorvastatin Calcium 40 MG TAB PO SCH (21:00)
[2020-05-07] MEDS: Ondansetron PF 4 MG/2 ML Vial IVP PRN (23:45)
[2020-05-08] MEDS: Oxazepam 10 MG CAP PO SCH ×5 (00:55→17:37)
[2020-05-08] MEDS: traMADol HCl 50 MG TAB PO SCH ×3 (01:07→12:15)
[2020-05-08] MEDS: Acetaminophen 325 MG TAB PO SCH ×4 (04:10→21:09)
[2020-05-08] MEDS: Ondansetron PF 4 MG/2 ML Vial IVP PRN ×2 (04:59→17:40)
[2020-05-08 05:43] LABS: #Eosinphils 0.3 thou/uL (0.0-0.7); #Lymphocytes 2.1 thou/uL (1.20-3.40); #Monocytes 1.3 thou/uL (0.11-0.59); #Neutrophils 10.6 thou/uL (1.40-6.50); %Basophils 0.3 % (0.0-1.0); %Eosinophils 2.1 % (0.0-10.0); %Lymphocytes 14.6 % (21.0-51.0); %Monocytes 9.2 % (0.0-10.0); %Neutrophils 73.8 % (42.0-75.0); Hemoglobin 9.4 g/dL (12.0-16.0); Mean Corpuscular HGB CONC 29.8 g/dL (32.0-36.0); Mean Corpuscular Hemoglobin 22.8 pg (27.0-31.0); Mean Corpuscular Volume 76.5 fL (78.0-98.0); Mean Platelet Volume 10.1 fL (7.4-10.4); Platelet Count 300 thou/uL (130-400); RBC Distribution Width 22.3 % (11.5-14.5); Red Blood Cell (RBC) Count 4.13 mill/uL (4.20-5.40); White Blood Cell (WBC) Count 14.4 thou/uL (4.8-10.8)
[2020-05-08 06:11] LABS: Anion Gap 13 mmol/L (10-20); BUN (Urea Nitrogen) 10 mg/dL (9.8-20.1); Calc. Creatinine Clearance 102 mL/min (70-130); Calcium 7.8 mg/dL (7.8-10.44); Carbon Dioxide 25 mmol/L (22-29); Chloride 105 mmol/L (98-107); Glucose 121 mg/dL (70-105); Magnesium 2.2 mg/dL (1.6-2.6); Phosphorus 2.9 mg/dL (2.3-4.7); Potassium 3.2 mmol/L (3.5-5.1); Sodium 140 mmol/L (136-145)
[2020-05-08] MEDS: Budesonide 0.5 MG/2 ML NEB NEB SCH ×2 (06:41→19:20)
[2020-05-08] MEDS: Micafungin 100 MG in Sodium Chloride 0.9% 100 ML IVPB SCH (09:29)
[2020-05-08] MEDS: Ferrous Sulfate 325 MG TAB PO SCH ×2 (09:30→17:37)
[2020-05-08] MEDS: Clarithromycin 500 MG TAB PO SCH ×2 (09:30→21:11)
[2020-05-08] MEDS: Enoxaparin Sodium 40 MG/0.4 ML SYRINGE SC SCH (09:30)
[2020-05-08] MEDS: Pantoprazole 40 MG VIAL IVP SCH ×2 (09:30→19:54)
[2020-05-08] MEDS: AMOXicillin 250 MG CAP PO SCH ×2 (09:30→19:54)
[2020-05-08] MEDS: Thiamine 100 MG TAB PO SCH (09:31)
[2020-05-08] MEDS: Amlodipine 10 MG TAB PO SCH (09:31)
[2020-05-08] MEDS: Ascorbic Acid 500 mg Chewable Tablet PO SCH (09:32)
[2020-05-08] MEDS: Folic Acid 1 MG TAB PO SCH (09:32)
[2020-05-08] MEDS ORDERED: Potassium Phosphate 30 MMOL in Sodium Chloride 0.9% 250 ML 250 ML IVPB SCH (10:30)
[2020-05-08] MEDS: traMADol HCl 50 MG TAB PO PRN (12:16)
[2020-05-08] MEDS ORDERED: Acetaminophen/Codeine 30-300mg Tablet PO PRN (13:01)
[2020-05-08] MEDS: Acetaminophen/Codeine 30-300mg Tablet PO SCH ×2 (14:32→19:46)
--- NOTE | 2020-05-08 16:12 | PRG ---
DATE OF SERVICE: 05/08/2020 SUBJECTIVE: The patient was seen this morning during rounds. She was sitting up in bed with no signs of acute distress. She reported that she has abdominal pain from coughing. She does report a productive cough which has been pretty persistent. She is quite a heavy smoker. She is saturating 100% on 55% high-flow nasal cannula. She is asking for liquid and states that she thinks she will feel better with drinking liquids. OBJECTIVE: VITAL SIGNS: Temperature 98.0, pulse 94, respirations 16, oxygen saturation 100% on 55% FiO2 on high-flow nasal cannula. Blood pressure 116/80. GENERAL: Middle-aged female, sitting up in bed with no signs of acute distress. PULMONARY: Equal chest rise and fall. Clear breath sounds bilaterally. No signs of acute respiratory distress. CARDIAC: Regular rate and rhythm. GI: Abdomen is soft, appropriately tender to palpation. Nondistended. Midline abdominal wound are clean, dry, and intact with amina in place. Right lower quadrant ALEXANDRA drain with serous fluid and drain. EXTREMITIES: 2+ pulses in all extremities. Gross motor and sensation intact. No significant swelling noted. NEURO: GCS is 15. LABORATORY FINDINGS: White count 14.4, hemoglobin 9.4, hematocrit 31.6, platelets 300. Sodium 140, potassium 3.2, chloride 105, bicarb 25, BUN 10, creatinine 0.85, glucose 121, phosphorus 2.9, magnesium 2.2. DIAGNOSTIC FINDINGS: There are no new diagnostic findings to report. ASSESSMENT: 1. Status post duodenal ulcer rupture with Delgado patch repair. 2. Sepsis, resolving. 3. Acute on chronic blood loss anemia. 4. History of peptic ulcer disease, chronic pain, alcohol and tobacco abuse. PLAN: Continue n.p.o. Continue tube feeds at goal. Continue micafungin and amoxicillin. The patient is not currently on any additional IV fluids. Continue Lovenox for DVT prophylaxis. Continue high-flow nasal cannula. The patient to receive an upper GI study tomorrow for evaluation of perforated duodenal ulcer. This patient was discussed with Dr. Sinha before this dictation. Job ID: [id number] [facility]
[2020-05-08] MEDS: Atorvastatin Calcium 40 MG TAB PO SCH (19:54)
[2020-05-08] MEDS ORDERED: HYDROcodone/Acetaminophen 5/325 mg Tablet PO PRN (20:01)
[2020-05-09] MEDS: Oxazepam 10 MG CAP PO SCH ×5 (02:30→23:04)
[2020-05-09] MEDS: Acetaminophen 325 MG TAB PO SCH ×4 (04:39→20:55)
[2020-05-09 06:01] LABS: #Basophils 0.1 thou/uL (0.0-0.2); #Eosinphils 0.3 thou/uL (0.0-0.7); #Monocytes 1.3 thou/uL (0.11-0.59); #Neutrophils 10.7 thou/uL (1.40-6.50); %Basophils 0.4 % (0.0-1.0); %Eosinophils 2.1 % (0.0-10.0); %Lymphocytes 13.9 % (21.0-51.0); %Monocytes 9.3 % (0.0-10.0); %Neutrophils 74.4 % (42.0-75.0); Hemoglobin 9.7 g/dL (12.0-16.0); Mean Corpuscular HGB CONC 30.9 g/dL (32.0-36.0); Mean Corpuscular Hemoglobin 23.8 pg (27.0-31.0); Mean Corpuscular Volume 76.9 fL (78.0-98.0); Mean Platelet Volume 10.2 fL (7.4-10.4); Platelet Count 328 thou/uL (130-400); RBC Distribution Width 22.2 % (11.5-14.5); Red Blood Cell (RBC) Count 4.07 mill/uL (4.20-5.40); White Blood Cell (WBC) Count 14.4 thou/uL (4.8-10.8)
[2020-05-09 06:09] LABS: Anion Gap 15 mmol/L (10-20); BUN (Urea Nitrogen) 13 mg/dL (9.8-20.1); Calc. Creatinine Clearance 102 mL/min (70-130); Calcium 7.9 mg/dL (7.8-10.44); Carbon Dioxide 25 mmol/L (22-29); Chloride 107 mmol/L (98-107); Glucose 117 mg/dL (70-105); Phosphorus 2.8 mg/dL (2.3-4.7); Potassium 3.6 mmol/L (3.5-5.1); Sodium 143 mmol/L (136-145)
--- NOTE | 2020-05-09 10:49 | RAD ---
EXAM: XR UGI Single Contrast No Air DATE: 05/09/2020 9:20 AM INDICATION: Evaluate duodenal ulcer repair site for leak COMPARISON: ET the abdomen and pelvis with contrast dated May 03, 2020 FINDING: Total fluoroscopic time 1.9 minutes. Total exposure 24.914 fischer per centimeter square. White Washer: White Washer demonstrates a nasogastric catheter and Dobbhoff feeding tube catheter. The Dobbhoff fee ding tube tip is seen within the region jejunum. No definite free air is evident. The gas pattern is unobstructed. Modified Gastrografin upper GI evaluation performed through the patient's nasogastric catheter demons trates opacification of the stomach and duodenal bulb without significant obstruction and without evidence of extraluminal leak. The images were performed in the upright and supine positioning. Right lateral decubitus images were also obtained. IMPRESSION:No evidence of significant obstruction or evidence of extraluminal leakage of contrast inv olving the duodenum.
[2020-05-09] MEDS: Thiamine 100 MG TAB PO SCH (10:54)
[2020-05-09] MEDS: Clarithromycin 500 MG TAB PO SCH ×2 (10:54→20:55)
[2020-05-09] MEDS: Ascorbic Acid 500 mg Chewable Tablet PO SCH (10:54)
[2020-05-09] MEDS: Folic Acid 1 MG TAB PO SCH (10:54)
[2020-05-09] MEDS: Ferrous Sulfate 325 MG TAB PO SCH ×2 (10:54→17:17)
[2020-05-09] MEDS: Amlodipine 10 MG TAB PO SCH (10:55)
[2020-05-09] MEDS: AMOXicillin 250 MG CAP PO SCH ×2 (10:55→20:54)
[2020-05-09] MEDS: Enoxaparin Sodium 40 MG/0.4 ML SYRINGE SC SCH (10:55)
[2020-05-09] MEDS: Pantoprazole 40 MG VIAL IVP SCH ×2 (10:56→20:54)
[2020-05-09] MEDS: Micafungin 100 MG in Sodium Chloride 0.9% 100 ML IVPB SCH (10:56)
[2020-05-09] MEDS: Budesonide 0.5 MG/2 ML NEB NEB SCH ×2 (11:53→19:07)
[2020-05-09] MEDS: HYDROcodone/Acetaminophen 5/325 mg Tablet PO PRN ×2 (12:59→20:58)
[2020-05-09] MEDS ORDERED: GASTROGRAFIN 30 ML BOT ONE (13:52)
[2020-05-09] MEDS ORDERED: MD-Gastroview 120 ML BOT ONE (13:53)
--- NOTE | 2020-05-09 20:50 | PRG ---
DATE OF SERVICE: 05/09/2020 SUBJECTIVE: The patient is currently on the surgical floor. She is status post surgical repair of a duodenal ulcer rupture with Delgado patch repair. The patient this morning underwent upper GI under fluoroscopy that showed contrast flow past the repair and no extravasation. The patient had her nasogastric tube removed. We will continue her Dobhoff for nighttime feedings. She reports that her pain is controlled. She has been tolerating her tube feeds and her bowel function has returned. PHYSICAL EXAMINATION: VITAL SIGNS: Temperature is 98.2, heart rate 96, blood pressure 144/85, respirations 16, and oxygen saturation is 96% on room air. GENERAL: The patient is resting comfortably in bed. Prior to her upper GI, her chief complaint was she was very hungry. Otherwise, she is doing well, though she does refuse to work with Physical Therapy until we "feed her." LUNGS: Scattered wheezes bilaterally. HEART: Regular rate and rhythm. ABDOMEN: Soft without gross peritoneal signs. Midline dressing is clean, dry, and intact. Her right lower quadrant ALEXANDRA drain has put out 20 mL of serosanguineous fluid. EXTREMITIES: Neurovascularly intact x4. LABORATORY FINDINGS: White blood cell count 14.4, hemoglobin 9.7, hematocrit 31.3, platelets 328. Sodium 143, potassium 3.6, chloride 107, CO2 of 25, BUN 13, creatinine 0.58, glucose 117, magnesium 2.0, phosphorus 2.8. RADIOGRAPHIC FINDINGS: Upper GI series shows no evidence of significant obstruction or evidence of extraluminal leakage of contrast involving the duodenum. ASSESSMENT AND PLAN: 1. Status post repair of duodenal ulcer rupture with Delgado patch repair. 2. Sepsis, resolved. 3. Acute on chronic blood loss anemia. 4. History of peptic ulcer disease, chronic pain, alcohol and tobacco abuse. Plan will be to again discontinue her nasogastric tube. We will start a clear liquid diet. Add Ensure supplement drinks 3 times a day and nocturnal tube feeds. We will encourage the patient to be out of bed and work with physical and occupational therapy and has bowel function and diet as tolerated. The patient will be likely able to be discharged home with possibility of requiring therapy. Job ID: [id number]
[2020-05-09] MEDS: Lorazepam 1 MG TAB PO SCH (20:54)
[2020-05-09] MEDS: Atorvastatin Calcium 40 MG TAB PO SCH (20:54)
[2020-05-10] MEDS: Oxazepam 10 MG CAP PO SCH ×4 (05:33→23:48)
[2020-05-10] MEDS: Acetaminophen 325 MG TAB PO SCH ×4 (05:33→21:03)
[2020-05-10] MEDS: Budesonide 0.5 MG/2 ML NEB NEB SCH ×2 (07:12→18:53)
[2020-05-10] MEDS: Ascorbic Acid 500 mg Chewable Tablet PO SCH (08:44)
[2020-05-10] MEDS: Thiamine 100 MG TAB PO SCH (08:44)
[2020-05-10] MEDS: AMOXicillin 250 MG CAP PO SCH ×2 (08:44→20:53)
[2020-05-10] MEDS: Amlodipine 10 MG TAB PO SCH (08:45)
[2020-05-10] MEDS: Clarithromycin 500 MG TAB PO SCH ×2 (08:45→21:03)
[2020-05-10] MEDS: Ferrous Sulfate 325 MG TAB PO SCH ×2 (08:45→17:10)
[2020-05-10] MEDS: Folic Acid 1 MG TAB PO SCH (08:45)
[2020-05-10] MEDS: Pantoprazole 40 MG VIAL IVP SCH ×2 (08:46→20:53)
[2020-05-10] MEDS: Enoxaparin Sodium 40 MG/0.4 ML SYRINGE SC SCH (08:46)
[2020-05-10] MEDS: Micafungin 100 MG in Sodium Chloride 0.9% 100 ML IVPB SCH (08:46)
--- NOTE | 2020-05-10 15:05 | PRG ---
DATE OF SERVICE: 05/10/2020 SUBJECTIVE: The patient is currently on the surgical floor. She is status post repair of a duodenal ulcer with a Delgado patch. She was started on clear liquid diet yesterday with nocturnal tube feeds. She had no issues overnight. She had one reported bowel movement that she describes as loose, which would be consistent with her tube feeds. Otherwise, she is doing well. I spoke to her at length this morning about getting out of bed and working with Physical Therapy, and she agreed to this. The patient also had her nasogastric tube discontinued yesterday. OBJECTIVE: VITAL SIGNS: Temperature is 98.6, heart rate 94, blood pressure 114/70, respirations 16, and oxygen saturations 94% on 5 L via nasal cannula. GENERAL: The patient is resting comfortably in bed. She is awake, alert, conversant. [place] Coma Scale is 15. HEENT: Unremarkable. LUNGS: Have scant scattered wheezes bilaterally. HEART: Regular rate and rhythm. ABDOMEN: Soft without gross peritoneal sign. Midline incision is clean, dry, and intact. Her right lower quadrant ALEXANDRA drain has 10 mL of serosanguineous fluid. EXTREMITIES: Neurovascularly intact x4. LABORATORY DATA: There are no labs or radiographs to review this morning. ASSESSMENT AND PLAN: 1. Status post repair of duodenal ulcer rupture with Delgado patch repair. 2. Sepsis, resolved. 3. Acute on chronic blood-loss anemia. 4. History of peptic ulcer disease, chronic pain, alcohol and tobacco abuse. Plan will be to continue with nocturnal feeds. We will advance to full liquid diet and discontinue her ALEXANDRA drain today. Can encourage out of bed and work with Physical and Occupational Therapy and begin working towards discharge planning. The evaluation and examination were discussed with Dr. Sinha this morning. Job ID: [id number]
[2020-05-10] MEDS: HYDROcodone/Acetaminophen 5/325 mg Tablet PO PRN (17:09)
[2020-05-10] MEDS: Atorvastatin Calcium 40 MG TAB PO SCH (20:53)
[2020-05-10] MEDS: Lorazepam 1 MG TAB PO SCH (20:53)
[2020-05-11] MEDS: Acetaminophen 325 MG TAB PO SCH ×2 (04:32→11:11)
[2020-05-11] MEDS: Oxazepam 10 MG CAP PO SCH ×2 (05:53→12:53)
[2020-05-11] MEDS: HYDROcodone/Acetaminophen 5/325 mg Tablet PO PRN (05:54)
[2020-05-11 06:41] LABS: #Eosinphils 0.1 thou/uL (0.0-0.7); #Lymphocytes 2.1 thou/uL (1.20-3.40); #Monocytes 1.7 thou/uL (0.11-0.59); #Neutrophils 13.2 thou/uL (1.40-6.50); %Basophils 0.1 % (0.0-1.0); %Eosinophils 0.8 % (0.0-10.0); %Lymphocytes 12.1 % (21.0-51.0); %Monocytes 10.1 % (0.0-10.0); %Neutrophils 76.9 % (42.0-75.0); Mean Corpuscular HGB CONC 29.9 g/dL (32.0-36.0); Mean Corpuscular Hemoglobin 22.5 pg (27.0-31.0); Mean Corpuscular Volume 75.3 fL (78.0-98.0); Mean Platelet Volume 9.8 fL (7.4-10.4); Platelet Count 464 thou/uL (130-400); RBC Distribution Width 22.9 % (11.5-14.5); Red Blood Cell (RBC) Count 4.01 mill/uL (4.20-5.40); White Blood Cell (WBC) Count 17.2 thou/uL (4.8-10.8)
[2020-05-11 06:44] LABS: Anion Gap 14 mmol/L (10-20); BUN (Urea Nitrogen) 9 mg/dL (9.8-20.1); Calc. Creatinine Clearance 97 mL/min (70-130); Carbon Dioxide 23 mmol/L (22-29); Chloride 107 mmol/L (98-107); Glucose 129 mg/dL (70-105); Phosphorus 2.6 mg/dL (2.3-4.7); Potassium 3.2 mmol/L (3.5-5.1); Sodium 141 mmol/L (136-145)
[2020-05-11] MEDS: Budesonide 0.5 MG/2 ML NEB NEB SCH (07:38)
[2020-05-11] MEDS: Pantoprazole 40 MG VIAL IVP SCH (08:57)
[2020-05-11] MEDS: Enoxaparin Sodium 40 MG/0.4 ML SYRINGE SC SCH (08:59)
[2020-05-11] MEDS: Ascorbic Acid 500 mg Chewable Tablet PO SCH (08:59)
[2020-05-11] MEDS: Micafungin 100 MG in Sodium Chloride 0.9% 100 ML IVPB SCH (09:00)
[2020-05-11] MEDS: Amlodipine 10 MG TAB PO SCH (09:00)
[2020-05-11] MEDS: Folic Acid 1 MG TAB PO SCH (09:00)
[2020-05-11] MEDS: Thiamine 100 MG TAB PO SCH (09:00)
[2020-05-11] MEDS: Ferrous Sulfate 325 MG TAB PO SCH (09:01)
[2020-05-11 13:19] VITALS: BP 127/80; TEMP 98.7
[2020-05-12 11:23] LABS: Analyzer IN Cardio OR; Calcium, Ionized (arterial) 1.39 mmol/L (1.12-1.30); Carboxyhemoglobin (COHb) 0.8 gm% (0.0-3.0); Hemoglobin (Hb) 11.1 g/dL (12.0-16.0); O2 Tension (PaO2), arterial 410.5 mmHg (80.0-100.0)
[2020-05-12 12:11] LABS: Puncture Site Arterial Line
== END 2020-05-11 15:57 | disposition home or self-care (01) | DRG 853 ==
LOC: ERS 15:35 → SDC 17:10 → CCU 17:11 → IMCU/EMU 05-04 23:01 → SURG B 05-07 14:49
PROVIDERS: ADMIT Surgery; ATTEND Surgery
PROC: 0DU907Z Supplement Duodenum with Autologous Tissue Substitute, Open Approach (ICD-10-PCS; principal; 2020-05-03)
PROC: 02HV33Z Insertion of Infusion Device into Superior Vena Cava, Percutaneous Approach (ICD-10-PCS; 2020-05-03)
PROC: 0DHA7UZ Insertion of Feeding Device into Jejunum, Via Natural or Artificial Opening (ICD-10-PCS; 2020-05-03)
PROC: 30233N1 Transfusion of Nonautologous Red Blood Cells into Peripheral Vein, Percutaneous Approach (ICD-10-PCS; 2020-05-03)
DX: A41.9 Sepsis, unspecified organism (principal); R65.21 Severe sepsis with septic shock; K65.9 Peritonitis, unspecified; K26.5 Chronic or unspecified duodenal ulcer with perforation; J96.01 Acute respiratory failure with hypoxia; I69.354 Hemiplegia and hemiparesis following cerebral infarction affecting left non-dominant side; D62 Acute posthemorrhagic anemia; E87.2 Acidosis; Z20.828 Contact with and (suspected) exposure to other viral communicable diseases; I10 Essential (primary) hypertension; G89.4 Chronic pain syndrome; F10.10 Alcohol abuse, uncomplicated; F17.210 Nicotine dependence, cigarettes, uncomplicated; E83.42 Hypomagnesemia; E87.6 Hypokalemia; E83.39 Other disorders of phosphorus metabolism; Z79.899 Other long term (current) drug therapy
CPT/HCPCS: 0240U; 36415; 36416; 36430; 36600; 71045; 71275; 74018; 74240; 80048; 82330; 82803; 82805; 83605; 83735; 84100; 85025; 85610; 85730; 86850; 86900; 86901; 87635; 94002; 94003; 94640; 94660; 96365; 96374; C9113; J1100; J1170; J1650; J1940; J2248; J2250; J2270; J2370; J2405; J2543; J2704; J3010; J3475; J3480; J3490; J7030; J7050; J7620; J7626; P9016; Q0162; Q9963; Q9967; U0003